=== PATIENT | female | born 1975 | race Caucasian/White ===

== ENCOUNTER 2021-12-30 20:39 | Emergency (ER) | payer MEDICAID ==
[~2021-12-30] VITALS: Ht 152.4 cm; Wt 66.2 kg
[2021-12-30 21:24] VITALS: BP 146/105
--- NOTE | 2021-12-30 21:35 | NUR ---
Patient ambulated with strong gait to bed 1, patient on monitor, resting in bed with eyes open, A/Ox4, no s/s of distress.
--- NOTE | 2021-12-30 21:40 | NUR ---
PATIENT WITH COMPLAINTS OF FEELING "FUZZY AT THE BACK OF HER HEAD". PATIENT REPORTS THAT AROUND 10AM PATIENT HAD EPISODE WHILE AT SCHOOL AND WAS TOLD BY [employer]SM[employer] THAT SHE WAS STARING BLANKLY, PATIENT DENIES LOSS OF BOWEL AND BLADDER. BP AFTER EPISODE AT SCHOOL: 184/117, AND THEN 159/86. SYMPTOMS HAVE BEEN PROGRESSING OVER THE LAST THREE DAYS. PATIENT ALSO REPORTS THAT SHE STOPPED TAKING VITAMINS AND STOPPED EATING [place] WHICH ALSO CAUSED PATIENT TO HAVE SIMILAR EPISODE. DX: *DENIES PAST MEDICAL HISTORY
[2021-12-30 23:04] LABS: BASOPHILS % (AUTO) 0.6 % (0.0-2.0); EOSINOPHILS # (AUTO) 0.3 K/uL (0-0.4); EOSINOPHILS % (AUTO) 3.8 % (0.0-4.0); HEMATOCRIT 23.4 % (36-48); HEMOGLOBIN 7.2 g/dL (12.0-16.0); LYMPHOCYTES # (AUTO) 1.9 K/uL (2.5-16.5); LYMPHOCYTES % (AUTO) 26.4 % (20.5-51.1); MEAN CORPUSCULAR HEMOGLOBIN 18 pg (27-31); MEAN CORPUSCULAR HGB CONC 31 g/dL (33-37); MEAN CORPUSCULAR VOLUME 59.8 fL (80-94); MONOCYTES # (AUTO) 0.5 K/uL (0.8-1.0); MONOCYTES % (AUTO) 7.2 % (1.7-9.3); NEUTROPHILS # (AUTO) 4.4 K/uL (1.8-7.7); PLATELET COUNT (AUTO) 380 K/uL (140-450); RED BLOOD CELL COUNT(AUTO) 3.91 MIL/uL (4.20-5.40); RED CELL DISTRIBUTION WIDTH 20.1 % (11.6-13.7); WHITE BLOOD COUNT (AUTO) 7.1 K/uL (4.8-10.8)
[2021-12-30 23:54] LABS: ALBUMIN 3.4 g/dL (3.4-5.0); ANION GAP 10.6 (8-16); ASPARTATE AMINOTRANSFERASE 11 U/L (15-37); CHLORIDE 103 mmol/L (98-107); CREATININE 0.6 mg/dL (0.6-1.3); GFR ARICAN-AMERICAN 138 mL/min (>90); GLUCOSE 90 mg/dL (74-106); POTASSIUM 3.6 mmol/L (3.5-5.1); SODIUM SERUM 133 mmol/L (136-145); TOTAL BILIRUBIN 0.1 mg/dL (0.0-1.0); UREA NITROGEN, BLOOD 12 mg/dL (7-18)
[2021-12-31 00:13] LABS: APPEARANCE,URINE CLEAR (CLEAR); BILIRUBIN,URINE NEGATIVE (NEGATIVE); BLOOD, URINE TRACE-L (NEGATIVE); COLOR,URINE YELLOW (YELLOW); LEUKOCYTE ESTERASE ,URINE NEGATIVE (NEGATIVE); NITRITE, URINE NEGATIVE (NEGATIVE); UGLUCOSE NEGATIVE (NEGATIVE)
[2021-12-31 00:18] LABS: RBC,URINE 0-5 /HPF (0-5); WBC,URINE 0-5 /HPF (0-5)
[2021-12-31 01:40] VITALS: BP 146/105
--- NOTE | 2021-12-31 01:40 | NUR ---
Patient discharged with v/s stable. Written and verbal after care instructions given and explained. Patient verbalized understanding. Ambulatory with steady gait. All questions addressed prior to discharge. Advised to follow up with PMD.
== END 2021-12-31 01:40 | disposition home or self-care (01) ==
LOC: MED 20:39
DX: D64.9 Anemia, unspecified (principal); R07.9 Chest pain, unspecified; R06.02 Shortness of breath; R47.81 Slurred speech
CPT/HCPCS: 36415; 70450; 71045; 80053; 81001; 84484; 85025; 87086; 93005; 99285; Q0092